=== PATIENT | male | born 1970 | race Caucasian/White ===

== ENCOUNTER 2020-11-14 09:36 | Emergency (ER) | payer OTHER ==
[~2020-11-14 09:36] MED LIST: ASPIRIN CHEWABL81 MG PO; COREG 3.125M3.125 MG PO; CYCLOBENZAPRINE10 MG PO; ELIQUIS2.5 MG PO; LIPITOR40 MG PO; LOVAZA1 GM PO; MEDROL 4MG DOSEP4 MG PO; NITROQUIK SL0.4 MG SL; PLAVIX75 MG PO; RANEXA500 M1 PO; XARELTO10 MG PO; ZESTRIL2.5 MG PO
[2020-11-14 13:32] LABS: BILIRUBIN NEGATIVE (NEGATIVE); BLOOD NEGATIVE Ery/uL (NEGATIVE); CLARITY CLEAR (CLEAR); COLOR YELLOW (YELLOW); GLUCOSE (U) NORMAL (NORMAL); LEUKOCYTES NEGATIVE Leu/uL (NEGATIVE); NITRITE NEGATIVE (NEGATIVE); PROTEIN NEGATIVE (NEGATIVE); SPECIFIC GRAVITY 1.015 (1.001-1.030); UROBILINOGEN 0.2 mg/dL (0.2-1.0); pH 7.5 (5.0-9.0)
[2020-11-14 13:54] LABS: BASOPHIL 0.6 % (0-2); EOSINOPHIL 3.3 % (0-5); HCT 44.3 % (42.0-52.0); HGB 15.1 g/dl (13.2-18.0); LYMPHOCYTE 30.3 % (15-48); MCH 33.8 pg (25.0-31.0); MCHC 34.1 g/dL (32.0-36.0); MCV 99.1 fL (78.0-100.0); MONOCYTE 9.7 % (0-12); MPV 10.4 fL (6.0-9.5); NEUTROPHIL 55.8 % (41-80); NRBC 0; PLT 287 K/uL (150-400); RBC 4.47 M/uL (4.70-6.00); RDW 12.7 % (11.5-14.0); WBC 9.6 K/uL (4.0-10.5)
[2020-11-14 14:14] LABS: ALBUMIN 3.5 g/dL (3.4-5.0); BILIRUBIN - TOTAL 0.7 mg/dL (0.2-1.0); BUN/CREAT RATIO (CALC) 12.8 RATIO; CREATININE 0.86 mg/dL (0.67-1.17); POTASSIUM 4.2 mmol/L (3.5-5.1); TOTAL PROTEIN 7.5 g/dL (6.4-8.2)
== END 2020-11-14 15:20 | disposition home or self-care (01) ==
LOC: FER 09:36
PROVIDERS: Nurse Practitioner Family
DX: B34.9 Viral infection, unspecified (principal); M25.561 Pain in right knee; M25.562 Pain in left knee; M25.512 Pain in left shoulder; M25.522 Pain in left elbow; I25.2 Old myocardial infarction; E11.9 Type 2 diabetes mellitus without complications; I10 Essential (primary) hypertension; F17.210 Nicotine dependence, cigarettes, uncomplicated; Z79.01 Long term (current) use of anticoagulants; Z79.899 Other long term (current) drug therapy; Z79.84 Long term (current) use of oral hypoglycemic drugs
CPT/HCPCS: 36415; 71046; 80053; 81003; 85025

== ENCOUNTER 2021-12-18 09:56 | Emergency (ER) | payer OTHER ==
[2021-12-18 10:50] LABS: BASOPHIL 0.8 % (0-2); EOSINOPHIL 3.2 % (0-5); HCT 46.3 % (42.0-52.0); HGB 16.2 g/dl (13.2-18.0); LYMPHOCYTE 24.2 % (15-48); MCH 33.9 pg (25.0-31.0); MCV 96.9 fL (78.0-100.0); MONOCYTE 10.5 % (0-12); MPV 10.5 fL (6.0-9.5); NRBC 0; PLT 248 K/uL (150-400); RBC 4.78 M/uL (4.70-6.00); RDW 12.5 % (11.5-14.0); WBC 9.2 K/uL (4.0-10.5)
[2021-12-18 11:27] LABS: ALBUMIN 3.4 g/dL (3.4-5.0); BILIRUBIN - TOTAL 0.4 mg/dL (0.2-1.0); BUN/CREAT RATIO (CALC) 10.1 RATIO; CREATININE 0.79 mg/dL (0.67-1.17); GLOBULIN (CALCULATION) 3.7 g/dL; POTASSIUM 4.3 mmol/L (3.5-5.1); TOTAL PROTEIN 7.1 g/dL (6.4-8.2)
== END 2021-12-18 17:49 | disposition other institution (70) ==
LOC: FER 09:56
PROVIDERS: Emergency Medicine
DX: I25.119 Atherosclerotic heart disease of native coronary artery with unspecified angina pectoris (principal); F17.200 Nicotine dependence, unspecified, uncomplicated; Z20.822 Contact with and (suspected) exposure to COVID-19; Z79.82 Long term (current) use of aspirin; Z79.01 Long term (current) use of anticoagulants; Z79.899 Other long term (current) drug therapy
CPT/HCPCS: 36415; 71045; 80053; 84484; 85025; 93005; U0002